=== PATIENT | female | born 2000 | race Two or more races ===

== ENCOUNTER 2021-05-28 21:34 | Emergency (ER) | payer SELFPAY ==
[~2021-05-28] VITALS: Ht 157.5 cm; Wt 84.0 kg
[2021-05-28 21:45] VITALS: BP 102/61
== END 2021-05-28 23:02 | disposition left against medical advice (07) ==
LOC: ER 21:34
DX: O26.891 Other specified pregnancy related conditions, first trimester (principal); R10.30 Lower abdominal pain, unspecified; Z3A.01 Less than 8 weeks gestation of pregnancy; Z53.21 Procedure and treatment not carried out due to patient leaving prior to being seen by health care provider

== ENCOUNTER 2021-05-28 22:15 | Observation (INO) | payer SELFPAY ==
[~2021-05-28] VITALS: Ht 165.1 cm; Wt 84.3 kg
[2021-05-28 22:57] LABS: AMPHETAMINE/METHAMPHETAMINE NEG (NEG); BARBITURATES NEG (NEG); BENZODIAZEPINES NEG (NEG); CANNABINOIDS NEG (NEG); COCAINE NEG (NEG); METHADONE NEG (NEG); OPIATES NEG (NEG); PHENCYCLIDINE NEG (NEG)
[2021-05-28 23:01] LABS: BACTERIA,URINE MANY /HPF (0-FEW); WBC,URINE TNTC /HPF (0-4)
[2021-05-29 00:02] LABS: BASO % 0 % (0-3); EOS % 0 % (0-3); HEMATOCRIT 35.2 % (36.0-47.0); HEMOGLOBIN 12.4 g/dL (12.0-15.5); LYMPH % 7 % (24-48); MEAN CORPUSCULAR HEMOGLOBIN 31 pg (25-35); MEAN CORPUSCULAR HGB CONC 35 g/dL (31-37); MEAN CORPUSCULAR VOLUME 88 fL (79-100); MONO # 1.4 x10^3/uL (0.0-1.1); MONO % 10 % (0-9); NEUT # 11.1 x10^3/uL (1.8-7.7); NEUT % 82 % (31-73); PLATELET COUNT 200 x10^3/uL (140-400); WHITE BLOOD COUNT 13.6 x10^3/uL (4.0-11.0)
[2021-05-29 00:16] LABS: ALBUMIN 2.7 g/dL (3.4-5.0); ALBUMIN/GLOBULIN RATIO 0.6 (1.0-1.7); CALCIUM 8.3 mg/dL (8.5-10.1); CREATININE 0.6 mg/dL (0.6-1.0); GFR 127.5; TOTAL PROTEIN 7.3 g/dL (6.4-8.2)
[2021-05-29 00:21] LABS: POTASSIUM 2.6 mmol/L (3.5-5.1)
[2021-05-29] MEDS ORDERED: POTASSIUM CHLORIDE 20 MEQ TABLET.ER. PO ONE ×2 (00:30→09:30)
[2021-05-29 00:40] LABS: % BANDS 1 % (0-9); % LYMPHS 8 % (24-48); % MONOS 5 % (0-10); % SEGS 86 % (35-66); PLT ESTIMATE ADEQUATE (ADEQUATE)
[2021-05-29] MEDS: IV RINGERS,LACTATED 1000ML 1,000 ML IV PRN ×3 (00:53→02:56)
[2021-05-29 01:03] VITALS: BP 127/65
--- NOTE | 2021-05-29 02:08 | RAD ---
Limited obstetric ultrasound HISTORY: No care, assess size and dates. COMPARISON: No priors TECHNIQUE: transabdominal transducer with grayscale and M-mode Doppler and color Doppler sonography. FINDINGS: There is a single intrauterine viable fetus with estimated sonographic gestational age of 2 2 weeks 0 days and date of delivery October 02, 2021. heart rate 144 BPM. Amniotic fluid index 6.7 cm lower limits normal from measuring 2 pockets of fluid. Cervical length 4.6 cm. No cervical funneling or shortening. Posterior placenta. No placenta previa. No retroplacental hematoma. BPD: 5.12 cm, gestational age 21 weeks 4 days HC: 19.44 cm, gestational age 21 weeks 5 days AC: 17.44 cm, 22 weeks 3 days FL: 3.78 cm, 22 weeks 1 day EFW: 480 g, 21 weeks 2 days HC/AC: 1.1 CI: 74.6 Limited assessment of the anatomy. 2 umbilical arteries at the lower abdomen and pelvis documen lorna. Transverse cerebellar diameter 2.21 cm. Cisterna magna diameter 0.3 cm. Lateral ventricle atrial diameter 0.5 cm. Limited visualization of the kidneys and spine on this study. Limited visualization of the nose and lips on the study. There is a four-chamber heart. Limited documentation of the extre mities on this study. IMPRESSION: Single viable intrauterine fetus with estimated sonographic gestational age of 22 weeks 0 days. See above. Electronically signed by: Humphrey Nava MD (05/29/2021 2:05 AM) [facility]
[2021-05-29 09:02] LABS: CALCIUM 7.8 mg/dL (8.5-10.1); CREATININE 0.5 mg/dL (0.6-1.0); GFR 157.3
[2021-05-29 09:05] LABS: POTASSIUM 2.4 mmol/L (3.5-5.1)
[2021-05-30 18:10] LABS: RUBELLA IGG ANTIBODY <0.90 index (Immune >0.99)
== END 2021-05-29 12:10 | disposition home or self-care (01) ==
LOC: 3 SO LND 22:15
PROVIDERS: ADMIT Obstetrics & Gynecology; ATTEND Obstetrics & Gynecology
DX: O26.892 Other specified pregnancy related conditions, second trimester (principal); R10.9 Unspecified abdominal pain; H57.89 Other specified disorders of eye and adnexa; Z3A.21 21 weeks gestation of pregnancy; Z79.899 Other long term (current) drug therapy
CPT/HCPCS: 36415; 76805; 80048; 80053; 80307; 81001; 85007; 85025; 86592; 86703; 86762; 86787; 86803; 86850; 86900; 86901; 87077; 87086; 87186; 87340; 96360; 96361; G0378; G0379; J7120